=== PATIENT | female | born 1990 | race American Indian/Alaskan Native ===

== ENCOUNTER 2019-04-03 21:14 | Emergency (ER) | payer SELFPAY ==
--- NOTE | 2019-04-03 21:36 | Event Note ---
ED Screening Note ED Screening Note: to ED with vomiting no cough no sore throat lmp end 03/13 not vomiting in ER chills/ subj fever pmh neutropenia stomach ulcers rx none pcp none psh lump behind ear when kid at 15 y of age This initial assessment/diagnostic orders/clinical plan/treatment(s) is/are subject to change based on patients health status, clinical progression and re- assessment by fellow clinical providers in the ED. Further treatment and workup at subsequent clinical providers discretion. Patient/guardian urged not to elope from the ED as their condition may be serious if not clinically assessed and managed. Initial orders include: ua/labs
[2019-04-03 22:05] LABS: Basophils # (Auto) 0.1 K/mm3 (0.0-0.1); Eosinophils # (Auto) 0.4 K/mm3 (0.0-0.4); Eosinophils % (Auto) 5.4 % (0.0-4.3); Hematocrit 40.1 % (30.3-42.9); Hemoglobin 13.7 gm/dl (10.1-14.3); Lymphocytes # (Auto) 2.1 K/mm3 (1.2-5.4); Lymphocytes % (Auto) 27.3 % (13.4-35.0); Mean Corpuscular HGB Conc 34 % (30-34); Mean Corpuscular Volume 92 fl (79-97); Monocytes # (Auto) 0.7 K/mm3 (0.0-0.8); Monocytes % (Auto) 9.2 % (0.0-7.3); Platelet Count 349 K/mm3 (140-440); Red Blood Count 4.35 M/mm3 (3.65-5.03); Red Cell Distribution Width 13.9 % (13.2-15.2)
[2019-04-03 22:24] LABS: BUN/Creatinine Ratio 23; Blood Urea Nitrogen 14 mg/dL (7-17); Calcium 9.4 mg/dL (8.4-10.2); Hemolysis Index 12
[2019-04-03 22:49] LABS: HCG Qualitative,Urine Negative (Negative)
[2019-04-03 23:02] LABS: Bacteria,Urine 1+ /HPF (Negative); Bilirubin,Urine NEG (Negative); Blood,Urine NEG (Negative); Color,Urine Yellow (Yellow); Mucus,Urine 3+ /HPF; Urobilinogen,Urine < 2.0 mg/dL (<2.0)
[2019-04-04] MEDS ORDERED: KETOROLAC 30 MG/1 ML INJ IV ONE (01:01)
[2019-04-04] MEDS ORDERED: ONDANSETRON 4 MG/2 ML INJ IV ONE (01:01)
[2019-04-04] MEDS ORDERED: SODIUM CHLORIDE 0.9% 1000 ML 1,000 ML IV ONE (01:01)
[2019-04-04] MEDS ORDERED: FAMOTIDINE 20 MG/2 ML INJ IV ONE (01:01)
--- NOTE | 2019-04-04 02:31 | Emergency Department Report ---
ED N/V/D HPI - General Chief complaint: Headache Stated complaint: VOMITING W/CHILLS Time Seen by Provider: 04/03/19 21:34 Source: patient Mode of arrival: Ambulatory Limitations: No Limitations - History of Present Illness Initial comments: Patient is a 28-year-old white female with no past medical history presents to the ED complaining of acute onset persistent intermittent nausea and vomiting and diffuse severe headache and lack of appetite For the last 12 hours after eating food from the cafeteria at work about 24 hours ago. Patient states that she believes the food that she ate a walk may have been contaminated. Patient denies abdominal pain, diarrhea, dysuria, vaginal bleeding, vaginal discharge, chest pain, shortness of breath, sore throat, dizziness, change in vision, syncope or urinary frequency and urgency. Patient states that nobody else at home has had similar symptoms. MD complaint: nausea, vomiting, other (headache, diffuse body aches and pain) -: Sudden, hour(s) (12) Description of Vomiting: food contents, watery Description of Diarrhea: other (none) Associated Abdominal Pain: No Location: diffuse Radiation: none Severity: severe Pain Scale: 7 Quality: dull Consistency: intermittent Improves with: none Worsens with: none Context: possible food poisoning Associated Symptoms: denies other symptoms, myalgias, headaches, loss of appetite, malaise, nausea/vomiting. denies: chest pain, cough, diaphoresis, fever/chills, rash, dysuria, shortness of breath, syncope - Related Data Previous Rx's Medication Instructions Recorded Last Taken Type Butalb/Acetamin/Caff 50-325-40 1 - 2 tab PO Q6HR PRN #12 tab 04/04/19 Unknown Rx [Fioricet 50-325-40] Famotidine [Pepcid] 20 mg PO Q12H #20 tablet 04/04/19 Unknown Rx Ondansetron [Zofran ODT TAB] 8 mg PO Q8HR PRN #21 tab.rapdis 04/04/19 Unknown Rx Allergies Allergy/AdvReac Type Severity Reaction Status Date / Time No Known Allergies Allergy Unverified 04/03/19 21:39 ED Review of Systems ROS: Stated complaint: VOMITING W/CHILLS Other details as noted in HPI Constitutional: denies: chills, fever Eyes: denies: eye pain, eye discharge, vision change ENT: denies: ear pain, throat pain Respiratory: denies: cough, shortness of breath, wheezing Cardiovascular: denies: chest pain, palpitations Endocrine: no symptoms reported Gastrointestinal: nausea, vomiting. denies: abdominal pain, diarrhea Genitourinary: denies: urgency, dysuria, discharge Musculoskeletal: arthralgia, myalgia. denies: back pain, joint swelling Skin: denies: rash, lesions Neurological: headache. denies: weakness, paresthesias Psychiatric: denies: anxiety, depression Hematological/Lymphatic: denies: easy bleeding, easy bruising ED Past Medical Hx - Past Medical History Previous Medical History?: Yes Additional medical history: Neutropenia, Gastric Ulcer - Surgical History Past Surgical History?: Yes Additional Surgical History: Left Ear Lump - Social History Smoking Status: Never Smoker Substance Use Type: Alcohol - Medications Home Medications: Home Medications Medication Instructions Recorded Confirmed Last Taken Type Butalb/Acetamin/Caff 50-325-40 1 - 2 tab PO Q6HR PRN #12 tab 04/04/19 Unknown Rx [Fioricet 50-325-40] Famotidine [Pepcid] 20 mg PO Q12H #20 tablet 04/04/19 Unknown Rx Ondansetron [Zofran ODT TAB] 8 mg PO Q8HR PRN #21 tab.rapdis 04/04/19 Unknown R x ED Physical Exam - General Limitations: No Limitations General appearance: alert, in no apparent distress - Head Head exam: Present: atraumatic, normocephalic, normal inspection - Eye Eye exam: Present: normal appearance, PERRL, EOMI Pupils: Present: normal accommodation - ENT ENT exam: Present: normal exam, normal orophraynx, mucous membranes moist, TM's normal bilaterally, normal external ear exam - Neck Neck exam: Present: normal inspection, full ROM - Respiratory Respiratory exam: Present: normal lung sounds bilaterally. Absent: respiratory distress, wheezes, stridor, chest wall tenderness, accessory muscle use, decreased breath sounds - Cardiovascular Cardiovascular Exam: Present: regular rate, normal rhythm, normal heart sounds. Absent: systolic murmur, diastolic murmur, rubs, gallop - GI/Abdominal GI/Abdominal exam: Present: soft, normal bowel sounds. Absent: tenderness, guarding, hyperactive bowel sounds - Extremities Exam Extremities exam: Present: normal inspection, full ROM, normal capillary refill - Back Exam Back exam: Present: normal inspection, full ROM - Neurological Exam Neurological exam: Present: alert, oriented X3, CN II-XII intact, normal gait, reflexes normal - Psychiatric Psychiatric exam: Present: normal affect, normal mood - Skin Skin exam: Present: warm, dry, intact, normal color. Absent: rash ED Course Vital Signs 04/03/19 21:21 Temperature 98.2 F Pulse Rate 92 H Respiratory 20 Rate Blood Pressure 115/78 O2 Sat by Pulse 99 Oximetry ED Medical Decision Making - Lab Data Result diagrams: 04/03/19 21:57 04/03/19 21:57 - Medical Decision Making This is a 28-year-old female who presented to the ED with persistent intractable nausea and vomiting for 12 hours after eating food from a restaurant. In the ED, patient is alert and oriented 3 and is not in distress. Lab tests results were reviewed and are nonactionable. Patient was treated with normal saline 1 L IV, and also given antiemetics and pain. On reevaluation, patient's nausea and vomiting resolve as well as headache. Patient's symptoms are likely viral gastroenteritis based on the history and physical exam findings. Patient was discharged home on antiemetics and advised to maintain a clear liquid diet for 12-24 hours, take medications as advised for nausea and vomiting. The patient was advised to follow-up with her primary care physician in 5-7 days for reevaluation or return to the ED immediately if symptoms get worse. - Differential Diagnosis Gastroenteritis; Dehydration; tension headache Critical care attestation.: If time is entered above; I have spent that time in minutes in the direct care of this critically ill patient, excluding procedure time. ED Disposition Clinical Impression: Nausea and vomiting in adult, Viral gastroenteritis, Tension headache Disposition: DC-01 TO HOME OR SELFCARE Is pt being admited?: No Does the pt Need Aspirin: No Condition: Stable Instructions: Gastroenteritis (ED), Acute Nausea and Vomiting (ED), Acute Headache (ED) Additional Instructions: Maintain a clear liquid diet for 12-24 hours, take medications as advised and follow up with your primary care physician in 7-10 days for reevaluation. Return to the emergency Department immediately if symptoms get worse. Prescriptions: Butalb/Acetamin/Caff 50-325-40 [Fioricet 50-325-40] 1 - 2 tab PO Q6HR PRN #12 tab PRN Reason: Headache Famotidine [Pepcid] 20 mg PO Q12H #20 tablet Ondansetron [Zofran ODT TAB] 8 mg PO Q8HR PRN #21 tab.rapdis PRN Reason: Nausea Referrals: [facility] [Outside] - 7-10 days Time of Disposition: 02:31 Print Language: SWEDISH
[2019-04-04 03:23] VITALS: BP 118/74
== END 2019-04-04 02:47 | disposition home or self-care (01) ==
LOC: ED 21:14
DX: A08.4 Viral intestinal infection, unspecified (principal); G44.209 Tension-type headache, unspecified, not intractable; F10.10 Alcohol abuse, uncomplicated; R11.2 Nausea with vomiting, unspecified; Z79.899 Other long term (current) drug therapy
CPT/HCPCS: 36415; 80048; 81001; 81025; 85025; 96361; 96374; 96375; 99283; J1885; J2405; J7030